=== PATIENT | male | born 1965 | race Caucasian/White ===

== ENCOUNTER 2019-04-26 10:11 | Day surgery (SDC) | payer OTHER ==
[~2019-04-26] VITALS: Ht 175.3 cm; Wt 120.0 kg
[~2019-04-26 10:11] MED LIST: ACET-458 PO; BUPIVACAINE/PF 0.25% ONE; CETI-158 PO; EPINEPHRINE 1 MG/ML, 1ML ONE; ERGO500017 PO; FLUT9.9S NS; morphine SULFATE/PF 1 MG/ML, 10ML ONE
[2019-04-26] MEDS ORDERED: LACTATED RINGERS 1,000 ML IV SCH (11:05)
[2019-04-26 11:08] VITALS: BP 143/91
[2019-04-26] MEDS ORDERED: MIDAZOLAM 1 MG/ML, 2ML ONE (11:46)
[2019-04-26] MEDS ORDERED: FENTANYL PF 250 MCG/5ML ONE (11:46)
[2019-04-26] MEDS ORDERED: BUPIVACAINE/PF 0.25% INFIL ONE (12:52)
[2019-04-26] MEDS ORDERED: PROMETHAZINE 25 MG/ML, 1ML IV PRN (13:00)
[2019-04-26] MEDS ORDERED: MEPERIDINE/PF 25MG/0.5ML IVPush PRN (13:00)
[2019-04-26] MEDS ORDERED: OXYcodone 5 MG/5 ML ORAL.SOL UDC PO PRN (13:00)
[2019-04-26] MEDS ORDERED: ACETAMINOPHEN 325 MG TABLET PO PRN (13:00)
[2019-04-26] MEDS ORDERED: hydrALAzine 20 MG/ML, 1ML IV PRN (13:00)
[2019-04-26] MEDS ORDERED: FENTANYL PF 100 MCG/2ML IV PRN (13:00)
[2019-04-26] MEDS ORDERED: HALOPERIDOL 5 MG/ML IV PRN (13:00)
[2019-04-26] MEDS ORDERED: LIDOCAINE-MPF 2% ,5ML ONE (13:01)
[2019-04-26] MEDS ORDERED: KETOROLAC 30 MG/1 ML ONE (13:01)
[2019-04-26] MEDS ORDERED: DEXAMETHASONE 4 MG/ML, 1ML ONE (13:01)
[2019-04-26] MEDS ORDERED: CEFAZOLIN 1,000 MG ONE (13:01)
[2019-04-26] MEDS ORDERED: PROPOFOL 10 MG/ML, 20ML ONE (13:01)
[2019-04-26] MEDS ORDERED: ONDANSETRON 2MG/ML, 2ML ONE (13:01)
[2019-04-26] MEDS ORDERED: OXYcodone 5 MG/5 ML ORAL.SOL UDC ONE (13:21)
[2019-04-26] MEDS ORDERED: HYDROmorphone 2 MG/ML, 1ML ONE (13:21)
[2019-04-26] MEDS: HYDROmorphone 2 MG/ML, 1ML IVPush PRN ×2 (13:24→13:31)
== END 2019-04-26 15:30 | disposition home or self-care (01) ==
LOC: OUT 10:11
PROVIDERS: ATTEND Orthopaedic Surgery
DX: S83.232A Complex tear of medial meniscus, current injury, left knee, initial encounter (principal); M22.42 Chondromalacia patellae, left knee; E66.9 Obesity, unspecified; Z72.89 Other problems related to lifestyle; X58.XXXA Exposure to other specified factors, initial encounter; Y93.89 Activity, other specified; Y92.89 Other specified places as the place of occurrence of the external cause; Y99.8 Other external cause status
CPT/HCPCS: 29881; J0171; J0690; J1100; J1170; J1885; J2250; J2274; J2405; J2704; J3010; J3490; J7120